=== PATIENT | male | born 1975 | race Caucasian/White ===

== ENCOUNTER → 2024-09-20 | Outpatient (CLI) | payer OTHER | LOC: M PLAIMG 14:49 | PROVIDERS: ATTEND Physician Assistant | DX: M79.631 Pain in right forearm (principal); R22.31 Localized swelling, mass and lump, right upper limb ==

== ENCOUNTER → 2024-10-18 | Outpatient (CLI) | payer OTHER | LOC: M RAD 12:58 → EDUNIT# 13:45 | PROVIDERS: ATTEND Nurse Practitioner Family | DX: C73 Malignant neoplasm of thyroid gland (principal) ==